=== PATIENT | male | born 1940 | race Caucasian/White ===

== ENCOUNTER → 2017-01-08 | Outpatient (CLI) | payer MEDICARE ==
[~2017-01-08] MED LIST: AMIO200T42 PO; ASCO100072 PO; ASPI-614 PO; ATOR80TA PO; CAPT12.52 PO; CARV6.252 PO; CHOL40002 PO; CYAN1TAB29 PO; DOXY100C2 PO; DOXY100T PO; FINA5TAB4 PO; FURO-93 PO; FURO80TA77 PO; GABA-826 PO; GABA300C10 PO; GLUC1CAP18 PO; IPRA15SP NAS; LACT1CAP37 PO; LEVO25CA2 PO; LISI2.5T PO; LORA10CA PO; MORP15TA17 PO; MULT-717 PO; OMEG1CAP23 PO; OMEP-110 PO; OXYC-306 PO; OXYC1TAB8 PO; POTA10TA31 PO; POTA20TA6 PO; SALM1CAP2 PO; SPIR25TA3 PO; TAMS0.4C2 PO; TORS20TA2 PO; UBID1CAP18 PO; WARF2.5T PO; ZOLP10TA5 PO; [UNRECOGNIZED DRUG - OTHER] PO
[2017-01-08 14:08] LABS: HEMATOCRIT 41.8 % (39.2-51.8); HEMOGLOBIN 14.2 g/dL (13.7-18.0); WHITE BLOOD COUNT 7.5 x10^3/uL (3.4-10)
== END | disposition home or self-care (01) ==
LOC: STAR 12:41
PROVIDERS: ATTEND Internal Medicine Cardiovascular Disease
DX: Z01.818 Encounter for other preprocedural examination (principal); I47.2 Ventricular tachycardia; R79.1 Abnormal coagulation profile
CPT/HCPCS: 36415; 71020; 85025; 85610; 85730

== ENCOUNTER 2017-01-12 06:29 | Observation (INO) | payer MEDICARE ==
[~2017-01-12] VITALS: Ht 170.2 cm; Wt 104.2 kg
[~2017-01-12 06:29] MED LIST changes: -DOXY100C2 PO
[2017-01-12] MEDS ORDERED: SODIUM CHLORIDE 0.9% 1,000 ML IV SCH (06:41)
[2017-01-12 06:52] VITALS: BP 106/70
[2017-01-12] MEDS ORDERED: DOXY100C2 PO (07:05)
[2017-01-12] MEDS ORDERED: MIDAZOLAM 1 MG/ML, 5ML ONE (07:47)
[2017-01-12] MEDS ORDERED: FENTANYL PF 100 MCG/2ML ONE ×2 (07:47→10:36)
[2017-01-12] MEDS ORDERED: ISOPROTERENOL 0.2MG/ML, 5ML ONE (07:49)
[2017-01-12] MEDS ORDERED: PROTAMINE SULFATE 10 MG/ML, 5ML ONE (07:49)
[2017-01-12] MEDS ORDERED: HEPARIN 1,000 UNITS/ML, 10ML ONE ×2 (07:50→08:35)
[2017-01-12] MEDS ORDERED: LIDOCAINE 2%, 20ML ONE (07:50)
[2017-01-12] MEDS ORDERED: SUCCINYLCHOLINE 20 MG/ML, 10ML ONE (08:05)
[2017-01-12] MEDS ORDERED: ONDANSETRON 2MG/ML, 2ML ONE (08:05)
[2017-01-12] MEDS ORDERED: DEXAMETHASONE 4 MG/ML, 1ML ONE (08:05)
[2017-01-12] MEDS ORDERED: PROPOFOL 10 MG/ML, 20ML ONE (08:05)
[2017-01-12] MEDS ORDERED: ZOLPIDEM 5MG TABLET PO PRN (11:30)
[2017-01-12] MEDS ORDERED: ONDANSETRON 2MG/ML, 2ML IVPush PRN (12:00)
[2017-01-12] MEDS ORDERED: MIDAZOLAM 1 MG/ML, 2ML IV PRN (12:00)
[2017-01-12] MEDS ORDERED: OXYcodone 5 MG/5 ML ORAL.SOL UDC PO PRN (12:00)
[2017-01-12] MEDS ORDERED: HYDROmorphone 1 MG/ML, 1ML IV PRN (12:00)
[2017-01-12] MEDS ORDERED: FENTANYL PF 100 MCG/2ML IV PRN (12:00)
[2017-01-12] MEDS ORDERED: OXYcodone 5 MG/5 ML ORAL.SOL UDC ONE (12:07)
[2017-01-12 13:06] VITALS: BP 99/69
[2017-01-12] MEDS ORDERED: OXYcodone/APAP 7.5/325MG TABLET PO PRN (14:00)
[2017-01-12 16:42] VITALS: BP 106/70
[2017-01-12] MEDS: TORSEMIDE 20 MG TABLET PO SCH ×2 (18:29→20:58)
[2017-01-12 20:53] VITALS: BP 115/75
[2017-01-12] MEDS: OMEGA-3/FISH OIL CAPSULE PO SCH (20:57)
[2017-01-12] MEDS: DOXYCYCLINE 100MG TABLET PO SCH (20:57)
[2017-01-12] MEDS ORDERED: ZOLPIDEM 10MG TABLET PO SCH (21:00)
[2017-01-12] MEDS ORDERED: OMEPRAZOLE 20 MG CAPSULE.DR PO SCH (21:00)
[2017-01-13 00:26] VITALS: BP 108/72
[2017-01-13 07:51] VITALS: BP 103/62
[2017-01-13] MEDS: DOXYCYCLINE 100MG TABLET PO SCH (09:00)
[2017-01-13] MEDS: OMEGA-3/FISH OIL CAPSULE PO SCH (09:00)
[2017-01-13] MEDS ORDERED: MULTIVITAMINS/MINERALS TABLET PO SCH (09:00)
[2017-01-13] MEDS ORDERED: POTASSIUM CHLORIDE 20 MEQ TAB.ER.PRT PO SCH (09:00)
[2017-01-13] MEDS ORDERED: SPIRONOLACTONE 25 MG TABLET PO SCH (09:00)
[2017-01-13] MEDS ORDERED: LORATADINE 10 MG TABLET PO SCH (09:00)
[2017-01-13] MEDS ORDERED: TAMSULOSIN 0.4 MG CAP.ER.24H PO SCH (09:00)
[2017-01-13] MEDS: TORSEMIDE 20 MG TABLET PO SCH (09:00)
[2017-01-13] MEDS ORDERED: ONDANSETRON 2MG/ML, 2ML IVPush ONE (11:30)
[2017-01-13 14:15] VITALS: BP 104/71
[2017-01-13] MEDS ORDERED: WARFARIN 2.5 MG TABLET PO-COUM SCH (18:00)
== END 2017-01-13 16:40 | disposition home or self-care (01) ==
LOC: CACL 06:29 → ORIP 11:15 → 5SO 12:42 → DCLOUNGE 01-13 16:19
PROVIDERS: ADMIT Internal Medicine Cardiovascular Disease; ATTEND Internal Medicine Cardiovascular Disease
DX: I47.2 Ventricular tachycardia (principal); I42.0 Dilated cardiomyopathy; I50.9 Heart failure, unspecified; I48.91 Unspecified atrial fibrillation; I73.9 Peripheral vascular disease, unspecified; R21 Rash and other nonspecific skin eruption; R79.89 Other specified abnormal findings of blood chemistry; Z79.01 Long term (current) use of anticoagulants
CPT/HCPCS: 36415; 85347; 85610; 93623; 93654; 93662; 96374; C1730; C1759; C1760; C1766; C1893; C1894; C2630; C8929; G0378; J0330; J1100; J1644; J2250; J2405; J2704; J2720; J3010; J3490; Q9967; 93613; 93621

== ENCOUNTER → 2017-01-26 | Outpatient (CLI) | payer MEDICARE ==
[~2017-01-26] MED LIST changes: +DOXY100C2 PO
== END | disposition home or self-care (01) ==
LOC: WOUND 09:36
PROVIDERS: ATTEND Specialist
DX: L97.122 Non-pressure chronic ulcer of left thigh with fat layer exposed (principal); I50.42 Chronic combined systolic (congestive) and diastolic (congestive) heart failure; I73.9 Peripheral vascular disease, unspecified; I48.91 Unspecified atrial fibrillation
CPT/HCPCS: 97597; G0463; 99215; WOU0463

== ENCOUNTER → 2017-02-03 | Outpatient (CLI) | payer MEDICARE | END | disposition home or self-care (01) | LOC: WOUND 10:56 | PROVIDERS: ATTEND Internal Medicine | DX: L97.122 Non-pressure chronic ulcer of left thigh with fat layer exposed (principal); I50.42 Chronic combined systolic (congestive) and diastolic (congestive) heart failure; I73.9 Peripheral vascular disease, unspecified; I48.91 Unspecified atrial fibrillation; Z79.01 Long term (current) use of anticoagulants | CPT/HCPCS: 97597 ==

== ENCOUNTER → 2017-02-15 | Outpatient (CLI) | payer MEDICARE | END | disposition home or self-care (01) | LOC: WOUND 11:17 | PROVIDERS: ATTEND Family Medicine | DX: L97.122 Non-pressure chronic ulcer of left thigh with fat layer exposed (principal); L97.822 Non-pressure chronic ulcer of other part of left lower leg with fat layer exposed; I50.42 Chronic combined systolic (congestive) and diastolic (congestive) heart failure; I73.9 Peripheral vascular disease, unspecified; I48.91 Unspecified atrial fibrillation; Z79.01 Long term (current) use of anticoagulants | CPT/HCPCS: 11042 ==

== ENCOUNTER 2017-05-19 11:41 | Inpatient (IN) | payer MEDICARE ==
[~2017-05-19] VITALS: Ht 170.2 cm; Wt 111.1 kg
[2017-05-19] MEDS ORDERED: WARF5TAB PO (11:58)
[2017-05-19] MEDS ORDERED: SODIUM CHLORIDE FLUSH 10ML SYR IVF ONE (12:00)
[2017-05-19 12:36] LABS: BASOPHILS # (AUTO) 0.03 x10^3/uL (0-0.1); BASOPHILS % (AUTO) 0 % (0-1); EOSINOPHILS # (AUTO) 0.17 x10^3/uL (0-0.4); EOSINOPHILS % (AUTO) 3 % (1-7); LYMPHOCYTES # (AUTO) 1.31 x10^3/uL (1-3.4); LYMPHOCYTES % (AUTO) 20 % (22-44); MD NO; MEAN CORPUSCULAR HEMOGLOBIN 32.3 pg (27.5-34.5); MEAN CORPUSCULAR HGB CONC 33.1 g/dL (33.2-36.2); MEAN CORPUSCULAR VOLUME 97.6 fL (81-97); MEAN PLATELET VOLUME 7.6 fL (7.4-10.4); MONOCYTES # (AUTO) 0.75 x10^3/uL (0.2-0.8); MONOCYTES % (AUTO) 11 % (2-9); NEUTROPHILS # (AUTO) 4.37 x10^3/uL (1.8-6.8); NEUTROPHILS % (AUTO) 66 % (42-75); PLATELET COUNT 198 x10^3/uL (130-400); RED BLOOD COUNT 4.02 x10^6/uL (4.38-5.82); RED CELL DISTRIBUTION WIDTH 15.6 % (9.4-14.8)
[2017-05-19 12:44] LABS: INTERNATIONAL NORMALIZED RATIO 2.11 (0.93-1.1); PROTHROMBIN TIME 21.6 Seconds (9.6-11.5)
[2017-05-19 12:47] LABS: ALANINE AMINOTRANSFERASE 59 U/L (12-78); ALBUMIN 3.5 g/dL (3.4-5.0); ANION GAP 8 mmol/L (5-15); CALCIUM 8.4 mg/dL (8.5-10.1); CHLORIDE 105 mmol/L (98-107)
[2017-05-19 12:52] LABS: ALKALINE PHOSPHATASE 52 U/L (45-117); BILIRUBIN,TOTAL 0.7 mg/dL (0.2-1.0); CREATININE 1.16 mg/dL (0.7-1.3)
[2017-05-19] MEDS ORDERED: FILTER 0.22 MICRON FOR AMIODARONE IV PRN (13:30)
[2017-05-19] MEDS ORDERED: AMIODARONE 150 MG in DEXTROSE 5% 100 ML IV ONE ×3 (13:30→17:09)
[2017-05-19] MEDS ORDERED: AMIODARONE 50 MG/ML, 3ML IVPush ONE (13:30)
[2017-05-19] MEDS ORDERED: SODIUM CHLORIDE 0.9%, 500ML IVBOLUS ONE (13:30)
[2017-05-19 13:58] LABS: TROPONIN I < 0.015 ng/mL (0.000-0.045)
[2017-05-19] MEDS ORDERED: AMIODARONE 900 MG in DEXTROSE 5% 482 ML IV PRN ×2 (14:00→15:00)
[2017-05-19] MEDS: MEXILETINE 150 MG CAPSULE PO SCH ×2 (14:17→23:39)
[2017-05-19] MEDS ORDERED: DOCUSATE 100 MG CAPSULE PO PRN (15:00)
[2017-05-19] MEDS ORDERED: POLYETHYLENE GLYCOL 17 GM PACKET PO PRN (15:00)
[2017-05-19] MEDS ORDERED: HYDROcodone/APAP 5/325 TABLET PO PRN (15:00)
[2017-05-19] MEDS ORDERED: BISACODYL 10 MG SUPP PR PRN (15:00)
[2017-05-19] MEDS ORDERED: morphine SULFATE 10 MG/ML, 1ML IVPush PRN (15:00)
[2017-05-19] MEDS ORDERED: ENALAPRILAT 1.25 MG/ML, 2ML IVPush PRN (15:00)
[2017-05-19] MEDS ORDERED: LABETALOL 5MG/ML, 20ML IVPush PRN (15:00)
[2017-05-19] MEDS ORDERED: ACETAMINOPHEN 325 MG TABLET PO PRN (15:00)
[2017-05-19] MEDS ORDERED: ONDANSETRON 2MG/ML, 2ML IVPush PRN (15:00)
[2017-05-19 16:27] LABS: THYROID STIMULATING HORMONE 1.34 mIU/L (0.358-3.740)
[2017-05-19 16:28] VITALS: BP 103/72
[2017-05-19] MEDS ORDERED: LIDOCAINE IVPush ONE (17:00)
[2017-05-19] MEDS ORDERED: LIDOCAINE/DEX 5% IV,2GM/500ML 500 ML IV PRN (17:00)
[2017-05-19] MEDS: LIDOCAINE IV PRN (18:00)
[2017-05-19] MEDS: DEXTROSE 5% IV PRN (18:00)
[2017-05-19 19:24] VITALS: BP 92/67
[2017-05-19] MEDS ORDERED: ZOLP-413 PO (20:42)
[2017-05-19 20:51] LABS: TROPONIN I < 0.015 ng/mL (0.000-0.045)
[2017-05-19] MEDS ORDERED: GABAPENTIN 300 MG CAPSULE PO SCH (21:00)
[2017-05-19] MEDS: OMEPRAZOLE 20 MG CAPSULE.DR PO SCH (22:43)
[2017-05-19] MEDS: ZOLPIDEM 5MG TABLET PO PRN (22:43)
[2017-05-19] MEDS: ATORVASTATIN 80 MG TABLET PO SCH (22:43)
[2017-05-19] MEDS: CARVEDILOL 6.25 MG TABLET PO SCH (22:49)
[2017-05-20] VITALS (7 sets, daily range): BP systolic 86–128; BP diastolic 58–84
[2017-05-20] MEDS: LEVOTHYROXINE 50 MCG TABLET PO SCH (05:58)
[2017-05-20 06:19] LABS: INTERNATIONAL NORMALIZED RATIO 2.04 (0.93-1.1); PROTHROMBIN TIME 20.9 Seconds (9.6-11.5)
[2017-05-20 06:20] LABS: BASOPHILS # (AUTO) 0.02 x10^3/uL (0-0.1); BASOPHILS % (AUTO) 0 % (0-1); EOSINOPHILS # (AUTO) 0.22 x10^3/uL (0-0.4); EOSINOPHILS % (AUTO) 3 % (1-7); LYMPHOCYTES # (AUTO) 1.83 x10^3/uL (1-3.4); LYMPHOCYTES % (AUTO) 28 % (22-44); MD NO; MEAN CORPUSCULAR HEMOGLOBIN 33.5 pg (27.5-34.5); MEAN CORPUSCULAR HGB CONC 34.1 g/dL (33.2-36.2); MEAN CORPUSCULAR VOLUME 98.1 fL (81-97); MEAN PLATELET VOLUME 7.7 fL (7.4-10.4); MONOCYTES # (AUTO) 0.79 x10^3/uL (0.2-0.8); MONOCYTES % (AUTO) 12 % (2-9); NEUTROPHILS # (AUTO) 3.65 x10^3/uL (1.8-6.8); NEUTROPHILS % (AUTO) 56 % (42-75); PLATELET COUNT 188 x10^3/uL (130-400); RED BLOOD COUNT 4.08 x10^6/uL (4.38-5.82); RED CELL DISTRIBUTION WIDTH 15.9 % (9.4-14.8)
[2017-05-20 06:23] LABS: ALANINE AMINOTRANSFERASE 60 U/L (12-78); ALBUMIN 3.2 g/dL (3.4-5.0); ANION GAP 9 mmol/L (5-15); CALCIUM 8.5 mg/dL (8.5-10.1); CHLORIDE 105 mmol/L (98-107); CREATININE 1.02 mg/dL (0.7-1.3)
[2017-05-20 06:25] LABS: ALKALINE PHOSPHATASE 42 U/L (45-117); TOTAL PROTEIN 6.8 g/dL (6.4-8.2)
[2017-05-20] MEDS ORDERED: FILTER 0.22 MICRON IV PRN (07:00)
[2017-05-20] MEDS: AMIODARONE 900 MG in DEXTROSE 5% 482 ML IV SCH ×2 (09:05→23:01)
[2017-05-20] MEDS: TAMSULOSIN 0.4 MG CAP.ER.24H PO SCH (09:14)
[2017-05-20] MEDS: FINASTERIDE 5 MG TABLET PO SCH (09:14)
[2017-05-20] MEDS: MEXILETINE 150 MG CAPSULE PO SCH ×2 (09:14→17:40)
[2017-05-20] MEDS: GABAPENTIN 300 MG CAPSULE PO SCH ×3 (09:15→21:02)
[2017-05-20] MEDS: CARVEDILOL 6.25 MG TABLET PO SCH ×2 (09:15→21:02)
[2017-05-20] MEDS: LISINOPRIL 5 MG TABLET PO SCH (09:15)
[2017-05-20] MEDS: AMIODARONE 200 MG TABLET PO SCH (09:15)
[2017-05-20] MEDS: DEXTROSE 5% IV PRN (12:30)
[2017-05-20] MEDS: LIDOCAINE IV PRN (12:30)
[2017-05-20] MEDS: ATORVASTATIN 80 MG TABLET PO SCH (21:02)
[2017-05-20] MEDS: OMEPRAZOLE 20 MG CAPSULE.DR PO SCH (21:02)
[2017-05-20] MEDS: ZOLPIDEM 5MG TABLET PO PRN (21:02)
[2017-05-21 00:42] VITALS: BP 114/74
[2017-05-21] MEDS: MEXILETINE 150 MG CAPSULE PO SCH ×2 (00:43→08:19)
[2017-05-21] MEDS: LEVOTHYROXINE 50 MCG TABLET PO SCH (06:25)
[2017-05-21 06:26] LABS: ALBUMIN 3.2 g/dL (3.4-5.0); ANION GAP 10 mmol/L (5-15); CALCIUM 8.4 mg/dL (8.5-10.1); CHLORIDE 106 mmol/L (98-107)
[2017-05-21 06:32] LABS: ALANINE AMINOTRANSFERASE 56 U/L (12-78); ALKALINE PHOSPHATASE 44 U/L (45-117); BILIRUBIN,TOTAL 1.1 mg/dL (0.2-1.0); CREATININE 0.98 mg/dL (0.7-1.3); TOTAL PROTEIN 6.8 g/dL (6.4-8.2)
[2017-05-21] MEDS ORDERED: MEXI150C PO (07:31)
[2017-05-21] MEDS ORDERED: AMIO200T42 PO (07:31)
[2017-05-21] MEDS: LISINOPRIL 5 MG TABLET PO SCH (08:17)
[2017-05-21] MEDS: TAMSULOSIN 0.4 MG CAP.ER.24H PO SCH (08:18)
[2017-05-21] MEDS: GABAPENTIN 300 MG CAPSULE PO SCH (08:18)
[2017-05-21] MEDS: AMIODARONE 200 MG TABLET PO SCH (08:18)
[2017-05-21] MEDS: FINASTERIDE 5 MG TABLET PO SCH (08:18)
[2017-05-21] MEDS: CARVEDILOL 6.25 MG TABLET PO SCH (08:18)
[2017-05-21 08:56] VITALS: BP 119/82
== END 2017-05-21 09:30 | disposition home or self-care (01) | DRG 292 ==
LOC: ED 13:36 → EDIP 13:37 → ED 14:33 → 5SO 15:37 → DCLOUNGE 05-21 09:09
PROVIDERS: ADMIT Internal Medicine; ATTEND Internal Medicine
PROC: 4B02XSZ Measurement of Cardiac Pacemaker, External Approach (ICD-10-PCS; principal; 2017-05-19)
PROC: 5A2204Z Restoration of Cardiac Rhythm, Single (ICD-10-PCS; 2017-05-19)
DX: I13.0 Hypertensive heart and chronic kidney disease with heart failure and stage 1 through stage 4 chronic kidney disease, or unspecified chronic kidney disease (principal); I47.2 Ventricular tachycardia; G62.9 Polyneuropathy, unspecified; I25.5 Ischemic cardiomyopathy; I48.91 Unspecified atrial fibrillation; E03.9 Hypothyroidism, unspecified; E78.5 Hyperlipidemia, unspecified; F41.9 Anxiety disorder, unspecified; G47.33 Obstructive sleep apnea (adult) (pediatric); I50.22 Chronic systolic (congestive) heart failure; I25.2 Old myocardial infarction; I35.0 Nonrheumatic aortic (valve) stenosis; K21.9 Gastro-esophageal reflux disease without esophagitis; N18.3 Chronic kidney disease, stage 3 (moderate); N40.0 Benign prostatic hyperplasia without lower urinary tract symptoms; Z79.01 Long term (current) use of anticoagulants; Z79.899 Other long term (current) drug therapy; Z80.0 Family history of malignant neoplasm of digestive organs; Z86.79 Personal history of other diseases of the circulatory system; Z87.891 Personal history of nicotine dependence; Z95.1 Presence of aortocoronary bypass graft; Z95.810 Presence of automatic (implantable) cardiac defibrillator; Z90.49 Acquired absence of other specified parts of digestive tract
CPT/HCPCS: 36415; 71045; 80053; 83735; 83880; 84100; 84443; 84484; 85025; 85610; 85730; 93005; 93306; 96365; J2001; J7060; J0282; J7040

== ENCOUNTER → 2017-05-28 | Outpatient (CLI) | payer MEDICARE ==
[~2017-05-28] MED LIST changes: +MEXI150C PO; +WARF5TAB PO; +ZOLP-413 PO
== END | disposition home or self-care (01) ==
LOC: RAD 15:06
PROVIDERS: ATTEND Internal Medicine
DX: R22.41 Localized swelling, mass and lump, right lower limb (principal); M79.604 Pain in right leg; M79.605 Pain in left leg
CPT/HCPCS: 93970

== ENCOUNTER → 2017-06-25 | Outpatient (CLI) | payer MEDICARE | END | disposition home or self-care (01) | LOC: CFH 13:01 | PROVIDERS: ATTEND Psychiatry & Neurology Neurology | DX: G31.89 Other specified degenerative diseases of nervous system (principal); J32.9 Chronic sinusitis, unspecified; M48.061 Spinal stenosis, lumbar region without neurogenic claudication | CPT/HCPCS: 70450; 72131 ==

== ENCOUNTER → 2017-11-04 | Outpatient (CLI) | payer MEDICARE | END | disposition home or self-care (01) | LOC: CFH 15:59 | PROVIDERS: ATTEND Internal Medicine Cardiovascular Disease | DX: I48.91 Unspecified atrial fibrillation (principal); I51.7 Cardiomegaly; Z79.899 Other long term (current) drug therapy | CPT/HCPCS: 71046 ==

== ENCOUNTER 2017-11-09 13:11 | Inpatient (IN) | payer MEDICARE ==
[~2017-11-09] VITALS: Ht 170.2 cm; Wt 106.8 kg
[2017-11-09] MEDS ORDERED: SODIUM CHLORIDE FLUSH 10ML SYR IVF ONE (13:30)
[2017-11-09 14:04] LABS: ALANINE AMINOTRANSFERASE 56 U/L (12-78); ALBUMIN 3.3 g/dL (3.4-5.0); ANION GAP 8 mmol/L (5-15); BASOPHILS # (AUTO) 0.09 x10^3/uL (0-0.1); BASOPHILS % (AUTO) 1 % (0-1); CALCIUM 8.6 mg/dL (8.5-10.1); CHLORIDE 107 mmol/L (98-107); CREATININE 1.27 mg/dL (0.7-1.3); EOSINOPHILS # (AUTO) 0.32 x10^3/uL (0-0.4); EOSINOPHILS % (AUTO) 4 % (1-7); LYMPHOCYTES # (AUTO) 1.44 x10^3/uL (1-3.4); LYMPHOCYTES % (AUTO) 18 % (22-44); MD NO; MEAN CORPUSCULAR HEMOGLOBIN 33.7 pg (27.5-34.5); MEAN CORPUSCULAR HGB CONC 33.7 g/dL (33.2-36.2); MEAN PLATELET VOLUME 8.5 fL (7.4-10.4); MONOCYTES # (AUTO) 0.91 x10^3/uL (0.2-0.8); MONOCYTES % (AUTO) 12 % (2-9); NEUTROPHILS # (AUTO) 5.08 x10^3/uL (1.8-6.8); NEUTROPHILS % (AUTO) 65 % (42-75); PLATELET COUNT 210 x10^3/uL (130-400); RED BLOOD COUNT 3.98 x10^6/uL (4.38-5.82); RED CELL DISTRIBUTION WIDTH 16.7 % (9.4-14.8)
[2017-11-09 14:09] LABS: ALKALINE PHOSPHATASE 63 U/L (45-117); TOTAL PROTEIN 7.4 g/dL (6.4-8.2); TROPONIN I < 0.015 ng/mL (0.000-0.045)
[2017-11-09 14:17] LABS: INTERNATIONAL NORMALIZED RATIO 3.32 (0.93-1.1); PROTHROMBIN TIME 33.7 Seconds (9.6-11.5)
[2017-11-09] MEDS ORDERED: POTA20TA14 PO (14:36)
[2017-11-09] MEDS ORDERED: ZOLP-413 PO (14:36)
[2017-11-09] MEDS ORDERED: PROP10TA PO (14:36)
[2017-11-09] MEDS ORDERED: OMEP-110 PO (14:36)
[2017-11-09] MEDS ORDERED: LACT1CAP35 PO (14:36)
[2017-11-09] MEDS ORDERED: LORA10CA PO (14:36)
[2017-11-09] MEDS ORDERED: LEVO50TA PO ×2 (14:36)
[2017-11-09] MEDS ORDERED: ATOR80TA PO (14:36)
[2017-11-09] MEDS ORDERED: MEXI200C PO (14:36)
[2017-11-09] MEDS ORDERED: TAMS-11 PO (14:36)
[2017-11-09] MEDS ORDERED: VITAMIN B12 PO (14:36)
[2017-11-09] MEDS ORDERED: SPIR25TA3 PO (14:36)
[2017-11-09] MEDS ORDERED: BACL20TA PO (14:36)
[2017-11-09] MEDS ORDERED: AMIO200T42 PO (14:36)
[2017-11-09] MEDS ORDERED: TORS10TA PO (14:36)
[2017-11-09] MEDS ORDERED: SODIUM CHLORIDE FLUSH 10ML SYR IVF PRN (15:30)
[2017-11-09] MEDS ORDERED: OXYcodone/APAP 7.5/325MG TABLET PO PRN (16:30)
[2017-11-09 16:39] VITALS: BP 100/71
[2017-11-09] MEDS ORDERED: FUROSEMIDE 40 MG/4 ML IV SCH (17:00)
[2017-11-09] MEDS: FUROSEMIDE 40 MG/4 ML IV SCH (17:46)
[2017-11-09] MEDS ORDERED: WARFARIN 2 MG TABLET PO-COUM ONE (18:00)
[2017-11-09 18:34] VITALS: BP 120/79
[2017-11-09 18:44] LABS: TROPONIN I < 0.015 ng/mL (0.000-0.045)
[2017-11-09 18:53] LABS: FREE T4 (FREE THYROXINE) 1.66 ng/dL (0.76-1.46); THYROID STIMULATING HORMONE 2.61 mIU/L (0.358-3.740)
[2017-11-09] MEDS: IPRATROPIUM NASAL 0.03%, 30ML NAS SCH (20:52)
[2017-11-09] MEDS: TAMSULOSIN 0.4 MG CAP.ER.24H PO SCH (20:54)
[2017-11-09] MEDS: GABAPENTIN 300 MG CAPSULE PO SCH (20:54)
[2017-11-09] MEDS: PROPRANOLOL 10 MG TABLET PO SCH (20:54)
[2017-11-09] MEDS: BACLOFEN 10 MG TABLET PO SCH (20:54)
[2017-11-09] MEDS: OMEGA-3/FISH OIL CAPSULE PO SCH (20:55)
[2017-11-09] MEDS: MAGNESIUM OXIDE 400 MG TABLET PO SCH (20:55)
[2017-11-09] MEDS: ATORVASTATIN 80 MG TABLET PO SCH (20:55)
[2017-11-09] MEDS: CARVEDILOL 6.25 MG TABLET PO SCH (20:56)
[2017-11-09] MEDS: OMEPRAZOLE 20 MG CAPSULE.DR PO SCH (21:00)
[2017-11-09] MEDS ORDERED: TEMPLATE NON-FORMULARY MED. (Gluc Hcl/Csa/Coll Hy/Hyalur Ac** (Glucosamine Chondroitin Cap PO SCH (21:00)
[2017-11-09] MEDS ORDERED: SPIRONOLACTONE 25 MG TABLET PO SCH (21:00)
[2017-11-09] MEDS: ZOLPIDEM 5MG TABLET PO SCH (21:15)
[2017-11-09 23:31] LABS: TROPONIN I < 0.015 ng/mL (0.000-0.045)
[2017-11-10] VITALS (8 sets, daily range): BP systolic 83–107; BP diastolic 51–89
[2017-11-10 05:02] LABS: BASOPHILS # (AUTO) 0.03 x10^3/uL (0-0.1); BASOPHILS % (AUTO) 1 % (0-1); EOSINOPHILS # (AUTO) 0.26 x10^3/uL (0-0.4); EOSINOPHILS % (AUTO) 4 % (1-7); LYMPHOCYTES # (AUTO) 1.56 x10^3/uL (1-3.4); LYMPHOCYTES % (AUTO) 23 % (22-44); MD NO; MEAN CORPUSCULAR HEMOGLOBIN 33.1 pg (27.5-34.5); MEAN CORPUSCULAR HGB CONC 33.3 g/dL (33.2-36.2); MEAN CORPUSCULAR VOLUME 99.4 fL (81-97); MEAN PLATELET VOLUME 8.4 fL (7.4-10.4); MONOCYTES # (AUTO) 1.02 x10^3/uL (0.2-0.8); MONOCYTES % (AUTO) 15 % (2-9); NEUTROPHILS # (AUTO) 3.79 x10^3/uL (1.8-6.8); NEUTROPHILS % (AUTO) 57 % (42-75); PLATELET COUNT 204 x10^3/uL (130-400); RED CELL DISTRIBUTION WIDTH 16.3 % (9.4-14.8)
[2017-11-10 05:11] LABS: INTERNATIONAL NORMALIZED RATIO 3.2 (0.93-1.1); PROTHROMBIN TIME 32.5 Seconds (9.6-11.5)
[2017-11-10 05:20] LABS: CHLORIDE 107 mmol/L (98-107)
[2017-11-10 05:28] LABS: ALANINE AMINOTRANSFERASE 50 U/L (12-78); ALKALINE PHOSPHATASE 53 U/L (45-117); ANION GAP 10 mmol/L (5-15); CALCIUM 8.4 mg/dL (8.5-10.1); CREATININE 1.05 mg/dL (0.7-1.3); TOTAL PROTEIN 6.7 g/dL (6.4-8.2)
[2017-11-10] MEDS: BACLOFEN 10 MG TABLET PO SCH ×4 (06:00→21:02)
[2017-11-10] MEDS ORDERED: LEVOTHYROXINE 100 MCG TABLET PO SCH (09:00)
[2017-11-10] MEDS: LORATADINE 10 MG TABLET PO SCH (09:00)
[2017-11-10] MEDS: MAGNESIUM OXIDE 400 MG TABLET PO SCH ×2 (09:26→21:01)
[2017-11-10] MEDS: ASCORBIC ACID 500 MG TABLET PO SCH (09:26)
[2017-11-10] MEDS: IPRATROPIUM NASAL 0.03%, 30ML NAS SCH ×3 (09:26→21:00)
[2017-11-10] MEDS: FUROSEMIDE 40 MG/4 ML IV SCH ×2 (09:26→18:44)
[2017-11-10] MEDS: PROPRANOLOL 10 MG TABLET PO SCH ×2 (09:27→21:01)
[2017-11-10] MEDS: LACTOBACILLUS CHEW TABLET PO SCH (09:27)
[2017-11-10] MEDS: MULTIVITAMINS/MINERALS TABLET PO SCH (09:27)
[2017-11-10] MEDS: OMEGA-3/FISH OIL CAPSULE PO SCH ×2 (09:27→21:01)
[2017-11-10] MEDS: OMEPRAZOLE 20 MG CAPSULE.DR PO SCH ×2 (09:28→21:03)
[2017-11-10] MEDS: CHOLECALCIFEROL 1,000 UNIT TABLET PO SCH (09:28)
[2017-11-10] MEDS: POTASSIUM CHLORIDE 20 MEQ TAB.ER.PRT PO SCH ×2 (09:28→18:45)
[2017-11-10] MEDS: AMIODARONE 200 MG TABLET PO SCH (09:28)
[2017-11-10] MEDS: FINASTERIDE 5 MG TABLET PO SCH (09:29)
[2017-11-10] MEDS: CYANOCOBALAMIN 1,000 MCG TABLET PO SCH (09:29)
[2017-11-10] MEDS: GABAPENTIN 300 MG CAPSULE PO SCH ×3 (09:29→21:01)
[2017-11-10] MEDS: CARVEDILOL 6.25 MG TABLET PO SCH ×2 (09:30→21:02)
[2017-11-10] MEDS ORDERED: MAGNESIUM HYDROXIDE 8%, 30ML UDC PO PRN ×2 (14:00)
[2017-11-10] MEDS ORDERED: WARFARIN 2 MG TABLET PO-COUM ONE (18:00)
[2017-11-10] MEDS: TAMSULOSIN 0.4 MG CAP.ER.24H PO SCH (21:01)
[2017-11-10] MEDS: ZOLPIDEM 5MG TABLET PO SCH (21:01)
[2017-11-10] MEDS: ATORVASTATIN 80 MG TABLET PO SCH (21:02)
[2017-11-11 02:00] VITALS: BP 121/61
[2017-11-11] MEDS: LEVOTHYROXINE 75 MCG TABLET PO SCH (05:22)
[2017-11-11] MEDS: BACLOFEN 10 MG TABLET PO SCH ×4 (05:22→20:40)
[2017-11-11 06:33] LABS: INTERNATIONAL NORMALIZED RATIO 2.63 (0.93-1.1); PROTHROMBIN TIME 26.8 Seconds (9.6-11.5)
[2017-11-11 06:37] VITALS: BP 96/72
[2017-11-11 08:05] LABS: ANION GAP 7 mmol/L (5-15); CALCIUM 8.6 mg/dL (8.5-10.1); CHLORIDE 106 mmol/L (98-107); CREATININE 1.16 mg/dL (0.7-1.3)
[2017-11-11] MEDS: FUROSEMIDE 40 MG/4 ML IV SCH (08:09)
[2017-11-11] MEDS: IPRATROPIUM NASAL 0.03%, 30ML NAS SCH ×3 (09:00→20:38)
[2017-11-11] MEDS: ASCORBIC ACID 500 MG TABLET PO SCH (09:00)
[2017-11-11] MEDS: CARVEDILOL 6.25 MG TABLET PO SCH ×2 (09:00→20:39)
[2017-11-11] MEDS: OMEGA-3/FISH OIL CAPSULE PO SCH ×2 (09:00→20:40)
[2017-11-11] MEDS: PROPRANOLOL 10 MG TABLET PO SCH ×2 (09:01→20:40)
[2017-11-11] MEDS: MULTIVITAMINS/MINERALS TABLET PO SCH (09:01)
[2017-11-11] MEDS: CYANOCOBALAMIN 1,000 MCG TABLET PO SCH (09:01)
[2017-11-11] MEDS: OMEPRAZOLE 20 MG CAPSULE.DR PO SCH ×2 (09:01→20:41)
[2017-11-11] MEDS: MAGNESIUM OXIDE 400 MG TABLET PO SCH ×2 (09:01→20:41)
[2017-11-11] MEDS: FINASTERIDE 5 MG TABLET PO SCH (09:01)
[2017-11-11] MEDS: GABAPENTIN 300 MG CAPSULE PO SCH ×3 (09:01→20:41)
[2017-11-11] MEDS: LORATADINE 10 MG TABLET PO SCH (09:02)
[2017-11-11] MEDS: CHOLECALCIFEROL 1,000 UNIT TABLET PO SCH (09:02)
[2017-11-11] MEDS: LACTOBACILLUS CHEW TABLET PO SCH (09:02)
[2017-11-11] MEDS: POTASSIUM CHLORIDE 20 MEQ TAB.ER.PRT PO SCH ×2 (09:02→17:24)
[2017-11-11] MEDS: AMIODARONE 200 MG TABLET PO SCH (09:02)
[2017-11-11] MEDS ORDERED: LISINOPRIL 5 MG TABLET PO SCH (11:30)
[2017-11-11 12:31] VITALS: BP 92/65
[2017-11-11] MEDS ORDERED: WARFARIN 2.5 MG TABLET PO-COUM ONE (18:00)
[2017-11-11 19:50] VITALS: BP_SYST 76; BP_DIAS 49; BP_DIAS 54
[2017-11-11 20:32] VITALS: BP_SYST 77; BP_SYST 84; BP_DIAS 58
[2017-11-11] MEDS: TRAZODONE 50MG TABLET PO SCH (20:39)
[2017-11-11] MEDS: ATORVASTATIN 80 MG TABLET PO SCH (20:40)
[2017-11-11] MEDS: TAMSULOSIN 0.4 MG CAP.ER.24H PO SCH (20:40)
[2017-11-12 02:08] VITALS: BP 93/67
[2017-11-12 05:09] LABS: ANION GAP 6 mmol/L (5-15); CALCIUM 8.7 mg/dL (8.5-10.1); CHLORIDE 108 mmol/L (98-107)
[2017-11-12 05:24] LABS: INTERNATIONAL NORMALIZED RATIO 2.22 (0.93-1.1); PROTHROMBIN TIME 22.7 Seconds (9.6-11.5)
[2017-11-12] MEDS: BACLOFEN 10 MG TABLET PO SCH ×4 (05:44→20:03)
[2017-11-12] MEDS: LEVOTHYROXINE 75 MCG TABLET PO SCH (05:44)
[2017-11-12] MEDS ORDERED: SODIUM CHLORIDE 0.9% 500 ML IV ONE (05:55)
[2017-11-12 06:30] VITALS: BP 103/72
[2017-11-12] MEDS: POTASSIUM CHLORIDE 20 MEQ TAB.ER.PRT PO SCH ×2 (08:00→15:51)
[2017-11-12] MEDS: LACTOBACILLUS CHEW TABLET PO SCH (08:49)
[2017-11-12] MEDS: LORATADINE 10 MG TABLET PO SCH (08:49)
[2017-11-12] MEDS: MAGNESIUM OXIDE 400 MG TABLET PO SCH ×2 (08:49→20:02)
[2017-11-12] MEDS: MULTIVITAMINS/MINERALS TABLET PO SCH (08:49)
[2017-11-12] MEDS: AMIODARONE 200 MG TABLET PO SCH (08:49)
[2017-11-12] MEDS: PROPRANOLOL 10 MG TABLET PO SCH ×2 (08:49→17:32)
[2017-11-12] MEDS: OMEGA-3/FISH OIL CAPSULE PO SCH ×2 (08:49→19:58)
[2017-11-12] MEDS: GABAPENTIN 300 MG CAPSULE PO SCH ×3 (08:49→20:01)
[2017-11-12] MEDS: OMEPRAZOLE 20 MG CAPSULE.DR PO SCH ×2 (08:49→19:58)
[2017-11-12] MEDS: CARVEDILOL 6.25 MG TABLET PO SCH ×2 (08:49→17:32)
[2017-11-12] MEDS: ASCORBIC ACID 500 MG TABLET PO SCH (08:50)
[2017-11-12] MEDS: FINASTERIDE 5 MG TABLET PO SCH (08:50)
[2017-11-12] MEDS: CHOLECALCIFEROL 1,000 UNIT TABLET PO SCH (08:50)
[2017-11-12] MEDS: CYANOCOBALAMIN 1,000 MCG TABLET PO SCH (08:50)
[2017-11-12] MEDS ORDERED: FUROSEMIDE 20 MG/2 ML IV SCH (09:00)
[2017-11-12] MEDS ORDERED: FUROSEMIDE 40 MG/4 ML IV SCH (09:00)
[2017-11-12] MEDS ORDERED: LISINOPRIL 5 MG TABLET PO SCH (09:00)
[2017-11-12] MEDS ORDERED: SPIRONOLACTONE 25 MG TABLET PO SCH (09:00)
[2017-11-12 10:06] VITALS: BP 88/65
[2017-11-12] MEDS: IPRATROPIUM NASAL 0.03%, 30ML NAS SCH ×3 (10:18→20:10)
[2017-11-12 10:19] VITALS: BP 100/69
[2017-11-12 12:15] VITALS: BP 99/69
[2017-11-12] MEDS ORDERED: WARFARIN 5 MG TABLET PO-COUM ONE (18:00)
[2017-11-12 18:38] VITALS: BP 87/62
[2017-11-12] MEDS: TRAZODONE 50MG TABLET PO SCH (19:57)
[2017-11-12] MEDS: ATORVASTATIN 80 MG TABLET PO SCH (20:00)
[2017-11-12] MEDS: TAMSULOSIN 0.4 MG CAP.ER.24H PO SCH (20:02)
[2017-11-13 00:17] VITALS: BP 85/60
[2017-11-13 05:21] LABS: INTERNATIONAL NORMALIZED RATIO 2.08 (0.93-1.1); PROTHROMBIN TIME 21.3 Seconds (9.6-11.5)
[2017-11-13] MEDS: BACLOFEN 10 MG TABLET PO SCH ×4 (05:31→21:26)
[2017-11-13] MEDS: LEVOTHYROXINE 75 MCG TABLET PO SCH (05:33)
[2017-11-13 08:05] VITALS: BP 97/68
[2017-11-13] MEDS: GABAPENTIN 300 MG CAPSULE PO SCH ×3 (08:58→21:25)
[2017-11-13] MEDS: OMEPRAZOLE 20 MG CAPSULE.DR PO SCH ×2 (08:59→21:25)
[2017-11-13] MEDS: FUROSEMIDE 20 MG/2 ML IV SCH (08:59)
[2017-11-13] MEDS: CYANOCOBALAMIN 1,000 MCG TABLET PO SCH (09:00)
[2017-11-13] MEDS: PROPRANOLOL 10 MG TABLET PO SCH ×2 (09:00→21:24)
[2017-11-13] MEDS: MULTIVITAMINS/MINERALS TABLET PO SCH (09:00)
[2017-11-13] MEDS: POTASSIUM CHLORIDE 20 MEQ TAB.ER.PRT PO SCH (09:00)
[2017-11-13] MEDS: IPRATROPIUM NASAL 0.03%, 30ML NAS SCH ×3 (09:00→21:00)
[2017-11-13] MEDS: CARVEDILOL 6.25 MG TABLET PO SCH ×2 (09:00→21:26)
[2017-11-13] MEDS: OMEGA-3/FISH OIL CAPSULE PO SCH ×2 (09:00→21:00)
[2017-11-13] MEDS: AMIODARONE 200 MG TABLET PO SCH (09:00)
[2017-11-13] MEDS: LORATADINE 10 MG TABLET PO SCH (09:00)
[2017-11-13] MEDS: CHOLECALCIFEROL 1,000 UNIT TABLET PO SCH (09:00)
[2017-11-13] MEDS: LACTOBACILLUS CHEW TABLET PO SCH (09:00)
[2017-11-13] MEDS: FINASTERIDE 5 MG TABLET PO SCH (09:00)
[2017-11-13] MEDS: MAGNESIUM OXIDE 400 MG TABLET PO SCH ×2 (09:00→21:26)
[2017-11-13] MEDS: ASCORBIC ACID 500 MG TABLET PO SCH (09:00)
[2017-11-13] MEDS: morphine SULFATE 10 MG/ML, 1ML IVPush PRN ×2 (16:09→17:04)
[2017-11-13] MEDS ORDERED: WARFARIN 5 MG TABLET PO-COUM ONE (18:00)
[2017-11-13 21:22] VITALS: BP 116/81
[2017-11-13] MEDS: TRAZODONE 50MG TABLET PO SCH (21:24)
[2017-11-13] MEDS: ATORVASTATIN 80 MG TABLET PO SCH (21:25)
[2017-11-13] MEDS: TAMSULOSIN 0.4 MG CAP.ER.24H PO SCH (21:26)
[2017-11-14 05:22] LABS: ANION GAP 6 mmol/L (5-15); CALCIUM 8.4 mg/dL (8.5-10.1); CHLORIDE 111 mmol/L (98-107); CREATININE 0.89 mg/dL (0.7-1.3)
[2017-11-14 05:24] LABS: INTERNATIONAL NORMALIZED RATIO 2.46 (0.93-1.1); PROTHROMBIN TIME 25.1 Seconds (9.6-11.5)
[2017-11-14] MEDS: BACLOFEN 10 MG TABLET PO SCH ×6 (05:56→21:39)
[2017-11-14] MEDS: LEVOTHYROXINE 75 MCG TABLET PO SCH ×2 (05:56→06:07)
[2017-11-14] MEDS: FINASTERIDE 5 MG TABLET PO SCH (10:00)
[2017-11-14] MEDS: PROPRANOLOL 10 MG TABLET PO SCH ×3 (10:00→21:41)
[2017-11-14] MEDS: MULTIVITAMINS/MINERALS TABLET PO SCH (10:00)
[2017-11-14] MEDS: POTASSIUM CHLORIDE 20 MEQ TAB.ER.PRT PO SCH (10:00)
[2017-11-14] MEDS: OMEPRAZOLE 20 MG CAPSULE.DR PO SCH ×2 (10:00→21:07)
[2017-11-14] MEDS: LORATADINE 10 MG TABLET PO SCH (10:00)
[2017-11-14] MEDS: AMIODARONE 200 MG TABLET PO SCH (10:00)
[2017-11-14] MEDS: ASCORBIC ACID 500 MG TABLET PO SCH (10:00)
[2017-11-14] MEDS: FUROSEMIDE 20 MG/2 ML IV SCH (10:00)
[2017-11-14] MEDS: GABAPENTIN 300 MG CAPSULE PO SCH ×3 (10:00→21:07)
[2017-11-14] MEDS: IPRATROPIUM NASAL 0.03%, 30ML NAS SCH ×3 (10:00→21:08)
[2017-11-14] MEDS: CARVEDILOL 6.25 MG TABLET PO SCH ×3 (10:00→21:41)
[2017-11-14] MEDS: CYANOCOBALAMIN 1,000 MCG TABLET PO SCH (10:00)
[2017-11-14] MEDS: MAGNESIUM OXIDE 400 MG TABLET PO SCH ×2 (10:00→21:08)
[2017-11-14] MEDS: OMEGA-3/FISH OIL CAPSULE PO SCH ×2 (10:00→21:08)
[2017-11-14] MEDS: LACTOBACILLUS CHEW TABLET PO SCH (10:00)
[2017-11-14] MEDS: CHOLECALCIFEROL 1,000 UNIT TABLET PO SCH (10:00)
[2017-11-14] MEDS: morphine SULFATE 10 MG/ML, 1ML IVPush PRN ×2 (13:19→21:40)
[2017-11-14] MEDS ORDERED: WARFARIN 2.5 MG TABLET PO-COUM ONE (18:00)
[2017-11-14] MEDS: ATORVASTATIN 80 MG TABLET PO SCH ×2 (21:07→21:43)
[2017-11-14] MEDS: TAMSULOSIN 0.4 MG CAP.ER.24H PO SCH (21:08)
[2017-11-14] MEDS: TRAZODONE 50MG TABLET PO SCH (21:40)
[2017-11-15] MEDS: morphine SULFATE 10 MG/ML, 1ML IVPush PRN (04:01)
[2017-11-15] MEDS: BACLOFEN 10 MG TABLET PO SCH ×2 (04:02→11:56)
[2017-11-15] MEDS: LEVOTHYROXINE 75 MCG TABLET PO SCH (04:02)
[2017-11-15 04:31] LABS: INTERNATIONAL NORMALIZED RATIO 2.62 (0.93-1.1); PROTHROMBIN TIME 26.7 Seconds (9.6-11.5)
[2017-11-15 08:59] VITALS: BP 115/79
[2017-11-15] MEDS: PROPRANOLOL 10 MG TABLET PO SCH (09:03)
[2017-11-15] MEDS: IPRATROPIUM NASAL 0.03%, 30ML NAS SCH (09:07)
[2017-11-15] MEDS: OMEGA-3/FISH OIL CAPSULE PO SCH (09:08)
[2017-11-15] MEDS: POTASSIUM CHLORIDE 20 MEQ TAB.ER.PRT PO SCH (09:09)
[2017-11-15] MEDS: LACTOBACILLUS CHEW TABLET PO SCH (09:09)
[2017-11-15] MEDS: MULTIVITAMINS/MINERALS TABLET PO SCH (09:10)
[2017-11-15] MEDS: ASCORBIC ACID 500 MG TABLET PO SCH (09:10)
[2017-11-15] MEDS: CYANOCOBALAMIN 1,000 MCG TABLET PO SCH (09:10)
[2017-11-15] MEDS: MAGNESIUM OXIDE 400 MG TABLET PO SCH (09:10)
[2017-11-15] MEDS: CHOLECALCIFEROL 1,000 UNIT TABLET PO SCH (09:10)
[2017-11-15] MEDS: FUROSEMIDE 20 MG/2 ML IV SCH (09:20)
[2017-11-15] MEDS: CARVEDILOL 6.25 MG TABLET PO SCH (09:36)
[2017-11-15] MEDS: FINASTERIDE 5 MG TABLET PO SCH (09:36)
[2017-11-15] MEDS: GABAPENTIN 300 MG CAPSULE PO SCH (09:36)
[2017-11-15] MEDS: LORATADINE 10 MG TABLET PO SCH (09:36)
[2017-11-15] MEDS: OMEPRAZOLE 20 MG CAPSULE.DR PO SCH (09:37)
[2017-11-15] MEDS: AMIODARONE 200 MG TABLET PO SCH (09:37)
[2017-11-15] MEDS ORDERED: WARFARIN 2.5 MG TABLET PO-COUM ONE (18:00)
== END 2017-11-15 13:00 | disposition hospice, home (50) | DRG 292 ==
LOC: ED 13:59 → EDIP 15:14 → 5SO 16:22 → 3NW 11-14 19:26
PROVIDERS: ADMIT Internal Medicine; ATTEND Internal Medicine
DX: I11.0 Hypertensive heart disease with heart failure (principal); I47.2 Ventricular tachycardia; I50.43 Acute on chronic combined systolic (congestive) and diastolic (congestive) heart failure; E03.9 Hypothyroidism, unspecified; E11.9 Type 2 diabetes mellitus without complications; E78.5 Hyperlipidemia, unspecified; G47.33 Obstructive sleep apnea (adult) (pediatric); I25.10 Atherosclerotic heart disease of native coronary artery without angina pectoris; I25.5 Ischemic cardiomyopathy; I35.0 Nonrheumatic aortic (valve) stenosis; Z96.659 Presence of unspecified artificial knee joint; M54.9 Dorsalgia, unspecified; I48.91 Unspecified atrial fibrillation; I50.84 End stage heart failure; K21.9 Gastro-esophageal reflux disease without esophagitis; N40.0 Benign prostatic hyperplasia without lower urinary tract symptoms; R29.6 Repeated falls; Z51.5 Encounter for palliative care; Z66 Do not resuscitate; Z79.01 Long term (current) use of anticoagulants; I25.2 Old myocardial infarction; Z95.0 Presence of cardiac pacemaker; Z95.1 Presence of aortocoronary bypass graft; Z87.891 Personal history of nicotine dependence; Z82.49 Family history of ischemic heart disease and other diseases of the circulatory system; Z86.79 Personal history of other diseases of the circulatory system; Z95.5 Presence of coronary angioplasty implant and graft; Z90.49 Acquired absence of other specified parts of digestive tract; Z98.49 Cataract extraction status, unspecified eye
CPT/HCPCS: 36415; 36600; 71045; 80048; 80053; 82803; 82962; 83735; 83880; 84439; 84443; 84484; 85025; 85610; 85730; 93005; 99285; C8929; J1940; J2270; J7040